=== PATIENT | female | born 1955 | race Caucasian/White ===

== ENCOUNTER → 2019-07-26 | Outpatient (POV) | payer MEDICARE, OTHER ==
[~2019-07-26] VITALS: Ht 157.5 cm; Wt 65.5 kg
[2019-07-26 09:40] VITALS: BP 158/84
--- NOTE | 2019-07-27 11:59 | IRCOV ---
[facility] IR Consult Office Visit IR Consult Office Visit DATE: Jul 26, 2019 REASON FOR CONSULTATION/CHIEF COMPLAINT: Left renal mass. HISTORY OF PRESENT ILLNESS: 64-year-old female with incidentally found growing left renal mass referred from [facility]. Lesion was incidentally found on imaging in 2012 and per report, is growing since that time. No hematuria. No pain, weight loss, loss of appetite or fatigue. ALLERGIES: Please see below. HOME MEDICATIONS: Please see below. 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 Quit 2-1/2 years ago. Occasional alcohol. Marijuana use. REVIEW OF SYSTEMS: Otherwise negative PHYSICAL EXAMINATION: VITAL SIGNS: Please see below. GENERAL APPEARANCE: Appears well. Comfortable at rest. HEENT: No scleral icterus. RESPIRATORY: Normal breathing at rest. CARDIOVASCULAR: Normal rate. ABDOMEN: Soft nontender. EXTREMITIES: No pedal edema. NEUROLOGICAL: Alert and oriented. PSYCHIATRIC: Appropriate to circumstance. LABORATORY DATA: None Imaging: I personally reviewed the ultrasound of kidneys from July 2019. There is a 2 cm round exophytic mass off the left kidney which demonstrate no definite through transmission. I personally reviewed all her CT abdomen imaging dating back to 2011, some are with contrast some without intravenous contrast. The lesion was not present on the CT scan in 2011. On the noncontrast CT images obtained in 2012 the lesion was less than 1 cm and appears like a hyperdense cyst. In [address] with IV contrast demonstrates the lesion is larger but there is no solid arterial enhancement within the lesion. In 2019 the lesion appears larger than back in 2013 with only 13 HU indicating non solid. ASSESSMENT/PLAN: 64-year-old female with growing left renal mass presents for ablation therapy. The lesion does not demonstrate typical RCC enhancement on brynn ging and only measures 13 HU on noncontrast imaging indicating it may be cystic. Given nonclassic appearance, I would favor biopsy first. We discussed the risks and benefits of the procedure and patient would like to proceed. We'll schedule the patient for the biopsy. Patient is currently on aspirin and Plavix for drug- eluting stents in the coronaries. Ideally I would like at least Plavix stopped for 5 days to prevent risk of bleeding. 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 I spent 30 minutes in consultation with the patient. Thank you for this referral. Cc Dr. Dickson Larios [facility] Cc Dr. Hugo Davis urology VS, I&O, 24H, Fishbone Vital Signs/I&O Vital Signs Date Time Temp Pulse Resp B/P (MAP) Pulse Ox O2 Delivery O2 Flow Rate FiO2 07/26/19 09:40 97.9 73 18 158/84 (108) 95 Room Air WILLIAM THOMPSON MD Jul 27, 2019 11:59
== END ==
LOC: M IRPOV 09:17
PROVIDERS: ATTEND Radiology Diagnostic Radiology
DX: N28.89 Other specified disorders of kidney and ureter (principal); F12.90 Cannabis use, unspecified, uncomplicated; Z87.891 Personal history of nicotine dependence; Z79.01 Long term (current) use of anticoagulants; Z79.82 Long term (current) use of aspirin; Z95.5 Presence of coronary angioplasty implant and graft

== ENCOUNTER → 2019-08-11 | Outpatient (CLI) | payer MEDICARE, OTHER ==
[~2019-08-11] MED LIST: ACETAMINOPHEN 325 MG TAB As Ordered ONE; ASPI81TA26 PO; ATOR40TA75 PO; LIDOCAINE 1% MDV 20ML VIAL As Ordered ONE; LISI10TA4 PO; METO1TAB32 PO; MIDAZOLAM INJ 2 MG/2 ML VIAL (J2250) As Ordered ONE; PLAV1TAB2 PO; diphenhydrAMINE INJ 50MG/ML VIAL (J1200) As Ordered ONE; fentaNYL 100 MCG/2 ML INJECTION (J3010) As Ordered ONE
[2019-08-11 12:16] VITALS: BP 127/74
--- NOTE | 2019-08-11 14:35 | IRHP ---
[facility] IR Pre-Procedure H & P General Date of Service: Aug 11, 2019 Procedure: Same Day Surgery Interval History and Physical I have seen the patient and reviewed last H & P performed within 30 days. There is no significant interval change. History of Present Illness Chief Complaint The patient is a 64-year-old female admitted with a reason for visit of Kidney Lesion. PRE-PROCEDURE DIAGNOSIS: kidney lesion HEART: normal rate. LUNGS: normal breathing at rest. ASA Classification ASA Classification: II-Mild systemic disease Mallampati Score: II NPO: Yes Problems with prior sedation: No Obstructive Sleep Apnea: Yes Plan moderate sedation Home Medications Scheduled Aspirin (Aspirin EC), 81 MG PO DAILY, (Reported) Atorvastatin Calcium (Atorvastatin Calcium), 40 MG PO DAILY, (Reported) Clopidogrel Bisulfate (Plavix), 75 MG PO DAILY, (Reported) Lisinopril (Lisinopril), 10 MG PO DAILY, (Reported) Metoprolol Succinate (Metoprolol Succinate), 25 MG PO DAILY, (Reported) VS, I&O, 24H, Fishbone Vital Signs/I&O Vital Signs Date Time Temp Pulse Resp B/P (MAP) Pulse Ox O2 Delivery O2 Flow Rate FiO2 08/11/19 12:16 72 16 96 Room Air 08/11/19 10:25 2 08/11/19 08:42 98.0 WILLIAM THOMPSON MD Aug 11, 2019 14:35
--- NOTE | 2019-08-11 14:36 | POST-OPPD ---
Postoperative Procedure Note Date Of Procedure: Aug 11, 2019 Time Of Procedure: 14:35 PREOPERATIVE DIAGNOSIS: left renal lesion POSTOPERATIVE DIAGNOSIS: same FINDINGS: same PROCEDURE: left renal lesion FNA. no substance to lesion therefore no core could be obtained. may be cystic- hemorrhagic cyst. SURGEON: rafael ANESTHESIA: mod sed SPECIMENS: FNA ESTIMATED BLOOD LOSS: < 5 ml COMPLICATIONS: none POSTOPERATIVE CONDITION: stable WILLIAM THOMPSON MD Aug 11, 2019 14:36
--- NOTE | 2019-08-16 09:44 | IRPN ---
[facility] IR Progress Note IR Progress Note DATE: Aug 16, 2019 Patient informed that her kidney biopsy showed blood only which is in keeping with a hemorrhagic cyst. PET CT was negative. I advised her to follow up with her PCP and get yearly surveillance CT with IV contrast if necessary. No ablation indicated at present. Thank you for this referral CC referring physician Alberto SIDHU, I+O Alberto SIDHU I+O Vital Signs Date Time Temp Pulse Resp B/P (MAP) Pulse Ox O2 Delivery O2 Flow Rate FiO2 08/11/19 12:16 72 16 96 Room Air 08/11/19 10:25 2 08/11/19 08:42 98.0 WILLIAM THOMPSON MD Aug 16, 2019 09:44
== END ==
LOC: M IRPRO 07:45
PROVIDERS: ATTEND Radiology Diagnostic Radiology
DX: N28.89 Other specified disorders of kidney and ureter (principal); G47.33 Obstructive sleep apnea (adult) (pediatric); Z79.82 Long term (current) use of aspirin; Z79.899 Other long term (current) drug therapy
CPT/HCPCS: 50200; 77012; 88173; 88305; 99152; 99153; J1200; J2250; J3010

== ENCOUNTER → 2020-01-16 | Outpatient (CLI) | payer MEDICARE, OTHER ==
[~2020-01-16] MED LIST changes: -ACETAMINOPHEN 325 MG TAB As Ordered ONE; -LIDOCAINE 1% MDV 20ML VIAL As Ordered ONE; -MIDAZOLAM INJ 2 MG/2 ML VIAL (J2250) As Ordered ONE; -diphenhydrAMINE INJ 50MG/ML VIAL (J1200) As Ordered ONE; -fentaNYL 100 MCG/2 ML INJECTION (J3010) As Ordered ONE
--- NOTE | 2020-02-13 11:28 | REP ---
LEFT LOWER EXTREMITY DUPLEX VENOUS ULTRASOUND WITH REFLUX EVALUATION HISTORY: Left calf varicose veins. Evaluate for reflux. FINDINGS: The left lower extremity deep veins are anechoic and fully compressible on two- dimensional scanning. Color flow and spectral Doppler interrogation are unremarkable. There is no evidence of DVT. REFLUX EVALUATION: Reflux is seen in the left lower extremity into the proximal and mid greater saphenous vein from an anterior collateral with reflux distally to collateral veins off the mid greater saphenous vein. No reflux below this level was observed. No reflux was observed in the deep venous system. The anterior greater saphenous vein measures 2.7 mm in diameter. The greater saphenous vein measures 5.5 mm proximally at the saphenofemoral junction, 5.1 mm at mid thigh, and 3.5 mm at the knee. The lesser saphenous vein is 3.5 mm in diameter. IMPRESSION: Superficial system reflux as above left lower extremity. No evidence of deep vein thrombosis (DVT). MTDD
== END ==
LOC: M RAD 13:15
PROVIDERS: ATTEND Radiology Diagnostic Radiology
DX: I87.2 Venous insufficiency (chronic) (peripheral) (principal); M79.605 Pain in left leg